=== PATIENT | female | born 1940 | race Caucasian/White ===

== ENCOUNTER 2018-05-03 09:12 | Inpatient (IN) | payer OTHER ==
[~2018-05-03] VITALS: Ht 165.1 cm; Wt 83.4 kg
[2018-05-03 09:13] VITALS: BP 113/55
[2018-05-03] MEDS ORDERED: MAPAP325 MG PO (09:19)
[2018-05-03] MEDS ORDERED: COMBIGAN EYE DR10 ML OPHTHALMIC (09:21)
[2018-05-03] MEDS ORDERED: ARICEPT 5 MG TAB5 MG PO (09:22)
[2018-05-03] MEDS ORDERED: CLARITIN10 MG PO (09:22)
[2018-05-03] MEDS ORDERED: LEVOXYL25 MCG PO (09:22)
[2018-05-03] MEDS ORDERED: LUMIGAN2.5 M1 OPHTHALMIC (09:23)
[2018-05-03] MEDS ORDERED: LYRICA 50 MG50 MG PO (09:24)
[2018-05-03] MEDS ORDERED: NAMENDA 10 MG T10 MG PO (09:25)
[2018-05-03] MEDS ORDERED: REFRESH LIQUIGE15 ML OPHTHALMIC (09:26)
[2018-05-03] MEDS ORDERED: REQUIP 0.25 M0.25 M1 PO (09:26)
[2018-05-03] MEDS ORDERED: SOOTHE EYE OPHTHALMIC (09:27)
[2018-05-03] MEDS ORDERED: VITAMIN D3400 UNIT PO (09:28)
[2018-05-03 09:35] LABS: ABSOLUTE EOSINOPHILS 0.2 thou/uL (0.0-0.7); ABSOLUTE LYMPHOCYTES 1.6 thou/uL (0.8-5.3); ABSOLUTE MONOCYTES 0.5 thou/uL (0.0-1.2); ABSOLUTE NEUTROPHILS 2.4 thou/uL (1.6-8.1); EOSINOPHILS 4.5 %; HEMATOCRIT 41.3 % (37.0-47.0); HEMOGLOBIN 13.9 gm/dL (12.0-15.0); LYMPHOCYTES 33.8 %; MCHC 33.7 g/dL (28.0-37.0); MONOCYTES 9.9 %; MPV 9.3 fl. (7.2-11.1); NUCLEATED RBCS 0 /100WBC; PLATELET COUNT* 172 thou/uL (150-400); POLYS 50.8 %; RBC 4.35 mil/uL (4.20-5.00); RDW-CV 13.9 % (10.5-14.5); WBC 4.7 thou/uL (4.0-11.0)
[2018-05-03 10:03] LABS: ANION GAP 5 mmol/L (7-16); BUN 10 mg/dL (7-18); CALCIUM 8.9 mg/dL (8.5-10.1); CHLORIDE 105 mmol/L (98-107); CO2 30 mmol/L (21-32); GLUCOSE 177 mg/dL (70-99); POTASSIUM 3.8 mmol/L (3.5-5.1); SODIUM 140 mmol/L (136-145)
[2018-05-03 10:07] LABS: ALBUMIN 3.5 g/dL (3.4-5.0); ALKALINE PHOSPHATASE 55 U/L (46-116); LIPASE 161 U/L (73-393); MAGNESIUM 2.1 mg/dL (1.8-2.4); NT-PRO BRAIN NAT PEPTIDE 71 pg/mL (<300); SGOT 33 U/L (15-37); SGPT 40 U/L (30-65); TOTAL BILIRUBIN 0.3 mg/dL (<0.1-1.0); TOTAL PROTEIN 7.2 g/dL (6.4-8.2); TROPONIN-I LEVEL <0.06 ng/mL (<0.06)
[2018-05-03 10:53] VITALS: BP 112/56
[2018-05-03 12:00] VITALS: BP 113/62
--- NOTE | 2018-05-03 14:59 | EKG ---
[place] [address] ELECTROCARDIOGRAM REPORT Name: DARCI POTTER Room: [address] ADM IN .R.#: [id number] Admission: 05/03/18 Attend Phys: Franki Arciniega MD Discharge: Date of : 40 Report #: [id number] THIS REPORT FOR: //name// [facility] ED Test Date: 2018-05-03 Test Time: 09:19:28 Pat Name: DARCI POTTER Department: Room: [facility] Gender: F Cogeneration Technician: FACUNDO : 1940 Requested By: Oneal Alicea Order Number: [id number] MD: Meño Mendes Measurements Intervals [place] Rate: 67 P: [place]: QRS: -32 QRSD: 96 T: 47 QT: 451 QTc: 476 Interpretive Statements sinus rhythm artifact noted Left axis deviation Abnormal R-wave progression, late transition Nonspecific T abnormalities, lateral leads No previous ECG available for comparison Electronically Signed On 05-03-2018 14:59:23 HOME ASSESSMENT NURSE by Meño Mendes [email or web address] <ELECTRONICALLY SIGNED> By: Meño Mendes MD, [facility] 05/03/18 1459 8 8 Meño Mendes MD, [facility] /EPI
[2018-05-03 15:00] VITALS: BP 111/56
--- NOTE | 2018-05-03 18:33 | NUR ---
I ASSUMED CARE OF THE PATIENT AN ADMISSION FROM THE ED AT 1100. SHE IS FROM THE [facility] AND SHARES A ROOM WITH HER . SHE CAME IN WITH EMS AND IS HERE WITH NO CAR. SHE IS AWAKE AND ALERT, BUT UNABLE TO ANSWER QUESTIONS ABOUT WHERE SHE IS. SHE ONLY GETS HER BIRTHDAY RIGHT SOMETIMES. BED IS IN THE LOW LOCKED POSITION AND CALL LIGHT IS IN REACH. HOURLY ROUNDING IS COMPLETED AND PATIENT NEEDS ARE MET. PAIN IS DENIED. DAUGHTER AND GRAND DAUGHTER ARE AT THE BEDSIDE. THERE IS A COT FOR THE FOR OVERNIGHT. D.DIMER WAS DONE AND VQ SCAN AND VENOUS DOPPLER ULTRASOUND. WILL CONTINUE TO MONITOR.
[2018-05-03 20:00] VITALS: BP 116/67
[2018-05-04] VITALS: BP 99/48
[2018-05-04 04:00] VITALS: BP 102/53
[2018-05-04 04:52] LABS: ABSOLUTE BASOPHILS 0.1 thou/uL (0.0-0.2); ABSOLUTE EOSINOPHILS 0.2 thou/uL (0.0-0.7); ABSOLUTE LYMPHOCYTES 2.3 thou/uL (0.8-5.3); ABSOLUTE MONOCYTES 0.6 thou/uL (0.0-1.2); ABSOLUTE NEUTROPHILS 2.4 thou/uL (1.6-8.1); BASOPHILS 1.1 %; EOSINOPHILS 4.2 %; HEMATOCRIT 38.6 % (37.0-47.0); LYMPHOCYTES 40.3 %; MCH 32.1 pg (26.0-34.0); MCHC 33.7 g/dL (28.0-37.0); MCV 95.2 fL (80.0-100.0); MONOCYTES 11.2 %; MPV 9.9 fl. (7.2-11.1); NUCLEATED RBCS 0 /100WBC; PLATELET COUNT* 159 thou/uL (150-400); POLYS 43.2 %; RBC 4.05 mil/uL (4.20-5.00); RDW-CV 13.5 % (10.5-14.5); WBC 5.6 thou/uL (4.0-11.0)
[2018-05-04 05:05] LABS: ANION GAP 6 mmol/L (7-16); BUN 11 mg/dL (7-18); CALCIUM 9.2 mg/dL (8.5-10.1); CHLORIDE 106 mmol/L (98-107); CHOLESTEROL 271 mg/dL (<200); CO2 29 mmol/L (21-32); GLUCOSE 93 mg/dL (70-99); HDL CHOLESTEROL 31 mg/dL (>40); LDL CHOLESTEROL 174 mg/dL (<100); POTASSIUM 3.5 mmol/L (3.5-5.1); SODIUM 141 mmol/L (136-145); TC:HDL 8.7 Ratio (Not establshd); TRIGLYCERIDE 333 mg/dL (<150); VLDL 67 mg/dL (<40)
[2018-05-04 05:09] LABS: SERUM ASSESSMENT CLEAR
--- NOTE | 2018-05-04 07:08 | NUR ---
VITALS WNL. SEE MAR. SEE CHARTING. FALL PRECAUTIONS IN PLACE. HOURLY ROUNDING FOR SAFETY.
[2018-05-04 08:00] VITALS: BP 131/64
--- NOTE | 2018-05-04 10:18 | NUR ---
ASSUMED PT CARE AT 0730, FULL ASSESMENT DONE CHARTED.PT A/O X2-3, IS FORGETFUL, TAKES EXTRA TIME TO ANSWER QUESTIONS. PT WANTS TO GO HOME TODAY, IS AT BEDSIDE. PTS VSS, SB ON THE MONITOR. EATING BREAKFAST, STATES HER DAUGHTER WILL BE HER RIDE HOME. WILL CONTINUE TO MONITOR.
[2018-05-04 11:26] VITALS: BP 131/64
--- NOTE | 2018-05-04 12:06 | NUR ---
HOME DELIVERY DRIVER SPOKE TO THE PATIENT AND HER SPOUSE TO DISCUSS HER DISCHARGE TODAY BACK TO THE [facility]. PATIENT AND SPOUSE IN AGREEMENT. PATIENT'S SPOUSE INFORMS THAT THEIR GRANDDAUGHTER WILL PROVIDE TRANSPORT BACK TO THE [facility], BUT IT WILL TAKE HER 1 HOUR TO GET HERE. D/C FLAME HARDENING MACHINE OPERATOR INFORMED THE RN IN-CHARGE OF THE PATIENT OF THIS INFO AND SHE IS IN AGREEMENT. D/C FLAME HARDENING MACHINE OPERATOR ALSO CONTACTED THE [facility] TO INFORM OF THE PATIENT'S D/C AND FAXED THE PATIENT'S D/C ORDERS. CM WILL REMAIN AVAILABLE TO ASSIST AND FOLLOW NEEDED.
--- NOTE | 2018-05-04 12:23 | EKG ---
[place] [address] ELECTROCARDIOGRAM REPORT Name: DARCI POTTER Room: [address] ADM IN M.R.#: [id number] Admission: 05/03/18 Attend Phys: Franki Arciniega MD Discharge: Date of : 40 Report #: [id number] THIS REPORT FOR: //name// [facility] Test Date: 2018-05-04 Test Time: 08:40:15 Pat Name: DARCI POTTER Department: Room: [address] Gender: F Vocational Training Teacher: : 1940 Requested By: Meño Mendes Order Number: [id number] MD: Meño Mendes Measurements Intervals [place] Rate: 56 P: 29 [place]: 135 QRS: -27 QRSD: 105 T: 49 QT: 474 QTc: 458 Interpretive Statements Sinus rhythm Borderline left axis deviation Borderline low voltage, extremity leads Compared to ECG 05/03/2018 09:19:28 artifact no longer seen Electronically Signed On 05-04-2018 12:23:38 MANAGER RELATIONSHIP by Meño Mendes [email or web address] <ELECTRONICALLY SIGNED> By: Meño Mendes MD, [facility] 05/04/18 1223 0840 0840 Meño Mendes MD, [facility] /EPI
--- NOTE | 2018-05-04 13:33 | CON ---
[address] [address] CONSULTATION Name: DARCI POTTER Room: [address] IN M.R.#: [id number] Admission: 05/03/18 Attend Phys: Franki Arciniega MD Discharge: 05/04/18 Date of : 40 Report #: [id number] THIS REPORT FOR: //name// CC: [facility] DATE OF SERVICE: 05/03/2018 HISTORY OF PRESENT ILLNESS: The patient is a 77-year-old demented white female who I was asked to see in the hospital today after she complained of chest pain. The history is mainly obtained from some records from assisted living as well as the patient's granddaughter who was present. The patient has no previous history of heart disease. She lives in assisted living here in [place] because of a history of memory loss and difficulty caring for herself. She does use a walker. She has no previous history of heart disease. Starting yesterday, she complained of sharp pain in her chest. It is not related to trauma, swallowing, bending over. She denied any rash. She described a sharp pain. There is no radiation to her arm or jaw. She does have shortness of breath. She has been coughing. The [facility] finally called the ambulance today, and she was brought here to [place] for further evaluation and treatment. PAST MEDICAL HISTORY: She has had previous eye surgery for glaucoma. She has had 2 back surgeries. She has chronic back pain. MEDICATIONS: Her only medication includes Lumigan eyedrops. ALLERGIES: SHE HAS AN ALLERGY TO PENICILLIN. FAMILY HISTORY: Mother had heart attack. SOCIAL HISTORY: She is . Her also lives in an assisted living. No smoking or alcohol abuse. REVIEW OF SYSTEMS: She has had no history of stroke or asthma. She has had a peptic ulcer in the past. No liver disease, no kidney disease, no cancer. No chronic skin condition. She has chronic back pain and sciatica. PHYSICAL EXAMINATION: GENERAL: Elderly, frail appearing female, lying in bed. She appeared in no distress. VITAL SIGNS: Blood pressure 110/60, pulse 60. She is afebrile. HEENT: She was anicteric, conjunctiva pink. Mucous membranes moist. NECK: Veins nondistended. No carotid bruits. Neck supple. CHEST: Clear to auscultation. CARDIOVASCULAR: Regular rate and rhythm. [place] [address] CONSULTATION Name: DARCI POTTER Room: [address]#: [id number] Admission: 05/03/18 Attend Phys: Franki Arciniega MD Discharge: 05/04/18 Date of : 40 Report #: [id number] ABDOMEN: Soft. EXTREMITIES: Had no edema. Dorsalis pedis pulse 2+ bilaterally. SKIN: Warm, dry. NEUROLOGIC: Nonfocal. LYMPH: No adenopathy. MUSCULOSKELETAL: No joint effusion. LABORATORY DATA: ECG done in the Emergency Room this morning showed a sinus rhythm. There is a significant amount of artifact, but no significant ST or T-wave change. X-rays done in the Emergency Room today, she had a portable chest x-ray that showed normal heart size, clear lung king. She actually had lab work done in the Emergency Room, sodium 140, creatinine 1.0, glucose 177. Troponin was 0.06 on 2 sets. White blood cell count 4.7, hemoglobin 13.9. IMPRESSION AND RECOMMENDATIONS: 1. Chest pain. Reason unclear. Suspect musculoskeletal. Symptoms does not suggest GI. No evidence of acute coronary syndrome. Recommend no further cardiac workup. 2. Glaucoma. 3. Chronic back pain. <ELECTRONICALLY SIGNED> By: Meño Mendes MD, [facility] 05/04/18 1333 1433 1559Davibruno Mendes MD, FACC /nt
== END 2018-05-04 12:32 | disposition home or self-care (01) | DRG 313 ==
LOC: M.ERS 09:12 → M.2W 10:19 → M.TBA-ER 10:19 → M.2W 11:06
PROVIDERS: Emergency Medicine Emergency Medical Services; ADMIT Internal Medicine
DX: R07.89 Other chest pain (principal); F03.90 Unspecified dementia, unspecified severity, without behavioral disturbance, psychotic disturbance, mood disturbance, and anxiety; G89.29 Other chronic pain; H40.9 Unspecified glaucoma; M54.9 Dorsalgia, unspecified; Z82.49 Family history of ischemic heart disease and other diseases of the circulatory system; Z88.1 Allergy status to other antibiotic agents; Z88.0 Allergy status to penicillin; Z79.899 Other long term (current) drug therapy

== ENCOUNTER 2020-03-07 09:43 | Emergency (ER) | payer OTHER ==
[~2020-03-07] VITALS: Ht 157.5 cm; Wt 77.6 kg
[~2020-03-07 09:43] MED LIST: ARICEPT 5 MG TAB5 MG PO; CLARITIN10 MG PO; COMBIGAN EYE DR10 ML OPHTHALMIC; LEVOXYL25 MCG PO; LUMIGAN2.5 M1 OPHTHALMIC; LYRICA 50 MG50 MG PO; MAPAP325 MG PO; NAMENDA 10 MG T10 MG PO; REFRESH LIQUIGE15 ML OPHTHALMIC; REQUIP 0.25 M0.25 M1 PO; SOOTHE EYE OPHTHALMIC; VITAMIN D3400 UNIT PO
[2020-03-07] MEDS ORDERED: XANAX 0.25 MG0.25 MG PO (09:59)
[2020-03-07] MEDS ORDERED: NORCO 10-325 T1 EACH PO (10:01)
[2020-03-07] MEDS ORDERED: SENNA PLUS TAB1 EACH PO (10:02)
[2020-03-07] MEDS ORDERED: MIRALAX119 GM PO (10:02)
[2020-03-07] MEDS ORDERED: ZOLOFT 50 MG TA50 M1 PO (10:02)
[2020-03-07 10:44] LABS: ABSOLUTE EOSINOPHILS 0.2 thou/uL (0.0-0.7); ABSOLUTE LYMPHOCYTES 1.8 thou/uL (0.8-5.3); ABSOLUTE MONOCYTES 0.7 thou/uL (0.0-1.2); ABSOLUTE NEUTROPHILS 3.1 thou/uL (1.6-8.1); BASOPHILS 0.6 %; HEMOGLOBIN 13.7 gm/dL (12.0-15.0); LYMPHOCYTES 30.4 %; MCH 31.1 pg (26.0-34.0); MCHC 33.4 g/dL (28.0-37.0); MCV 93.2 fL (80.0-100.0); MONOCYTES 12.4 %; MPV 9.5 fl. (7.2-11.1); NUCLEATED RBCS 0 /100WBC; PLATELET COUNT* 114 thou/uL (150-400); POLYS 53.6 %; RBC 4.39 mil/uL (4.20-5.00); RDW-CV 13.5 % (10.5-14.5); WBC 5.9 thou/uL (4.0-11.0)
[2020-03-07 10:52] LABS: CALCIUM 8.5 mg/dL (8.5-10.1); POTASSIUM 4.1 mmol/L (3.5-5.1)
[2020-03-07 10:56] LABS: ALBUMIN 3.4 g/dL (3.4-5.0); TOTAL BILIRUBIN 0.3 mg/dL (<0.1-1.0)
[2020-03-07 12:35] VITALS: BP 124/51
--- NOTE | 2020-03-07 18:10 | EKG ---
[place] [address] ELECTROCARDIOGRAM REPORT Name: DARCI POTTER Room: [facility]#: [id number] Admission: 03/07/20 Attend Phys: Discharge: 03/07/20 Date of : 40 Date of Service: 03/07/20 [facility] Report #: [id number] THIS REPORT FOR: //name// [facility] ED Test Date: 2020-03-07 Test Time: 10:38:40 Pat Name: DARCI POTTER Department: Room: Gender: Auto Body Shop Manager: : 1940 Requested By: Oneal Alicea Order Number: [id number] MD: Stefan Gardner Measurements Intervals [place] Rate: 52 P: 47 FL: 148 QRS: -39 QRSD: 101 T: 61 QT: 472 QTc: 439 Interpretive Statements Sinus rhythm Left axis deviation Low voltage, precordial leads Abnormal R-wave progression, late transition Baseline wander in lead(s) V3 Compared to ECG 05/04/2018 08:40:15 No significant changes Electronically Signed On 03-07-2020 18:10:07 REAL ESTATE INVESTOR by Stefan Gardner [email or web address] <ELECTRONICALLY SIGNED> By: Stefan Gardner MD, FACC 03/07/20 1810 1038 1038 Stefan Gardner MD, FAC /EPI
== END 2020-03-07 12:35 ==
LOC: M.ERS 09:43
PROVIDERS: Emergency Medicine Emergency Medical Services
DX: M54.5 Low back pain (principal); F03.90 Unspecified dementia, unspecified severity, without behavioral disturbance, psychotic disturbance, mood disturbance, and anxiety; Z88.0 Allergy status to penicillin; Z88.1 Allergy status to other antibiotic agents; W18.39XA Other fall on same level, initial encounter; Y93.89 Activity, other specified; Y92.89 Other specified places as the place of occurrence of the external cause; Y99.8 Other external cause status

== ENCOUNTER 2020-05-15 09:12 | Emergency (ER) | payer OTHER ==
[~2020-05-15] VITALS: Ht 167.6 cm; Wt 73.2 kg
[~2020-05-15 09:12] MED LIST changes: +MIRALAX119 GM PO; +NORCO 10-325 T1 EACH PO; +SENNA PLUS TAB1 EACH PO; +XANAX 0.25 MG0.25 MG PO; +ZOLOFT 50 MG TA50 M1 PO
[2020-05-15] MEDS ORDERED: VITAMIN C500 M2 PO (09:23)
[2020-05-15] MEDS ORDERED: VOLTAREN GEL 1100 G1 TOP (09:23)
[2020-05-15] MEDS ORDERED: LORAZEPAM 0.50.5 MG PO (09:24)
[2020-05-15] MEDS ORDERED: LATANOPROST 0.2.5 ML OPHTHALMIC (09:24)
[2020-05-15 09:55] LABS: ABSOLUTE BASOPHILS 0.1 thou/uL (0.0-0.2); ABSOLUTE EOSINOPHILS 0.2 thou/uL (0.0-0.7); ABSOLUTE LYMPHOCYTES 0.6 thou/uL (0.8-5.3); ABSOLUTE MONOCYTES 0.6 thou/uL (0.0-1.2); BASOPHILS 0.8 %; HEMATOCRIT 41.7 % (37.0-47.0); HEMOGLOBIN 13.9 gm/dL (12.0-15.0); LYMPHOCYTES 9.5 %; MCH 30.5 pg (26.0-34.0); MCHC 33.3 g/dL (28.0-37.0); MCV 91.8 fL (80.0-100.0); MONOCYTES 9.4 %; MPV 9.6 fl. (7.2-11.1); NUCLEATED RBCS 0 /100WBC; PLATELET COUNT* 83 thou/uL (150-400); POLYS 77.3 %; RBC 4.54 mil/uL (4.20-5.00); RDW-CV 13.9 % (10.5-14.5); WBC 6.5 thou/uL (4.0-11.0)
[2020-05-15 10:07] LABS: CALCIUM 8.4 mg/dL (8.5-10.1); CREATININE 0.9 mg/dL (0.6-1.3); POTASSIUM 3.9 mmol/L (3.5-5.1)
[2020-05-15 10:10] LABS: ALBUMIN 3.4 g/dL (3.4-5.0); TOTAL BILIRUBIN 0.5 mg/dL (<0.1-1.0); TOTAL PROTEIN 6.7 g/dL (6.4-8.2)
--- NOTE | 2020-05-15 11:36 | EKG ---
[place] [address] ELECTROCARDIOGRAM REPORT Name: DARCI POTTER Room: [facility]#: [id number] Admission: 05/15/20 Attend Phys: Discharge: Date of : 40 Date of Service: 05/15/20921 Report #: [id number] THIS REPORT FOR: //name// [facility] ED Test Date: 2020-05-15 Test Time: 09:22:10 Pat Name: DARCI POTTER Department: Room: Gender: F Head Of Commission Department: : 1940 Requested By: Oneal Alicea Order Number: [id number] MD: Raphael Comer Measurements Intervals [place] Rate: 66 P: 18 [place]: 136 QRS: -43 QRSD: 104 T: 55 QT: 407 QTc: 427 Interpretive Statements Sinus rhythm Left anterior fascicular block Minimal ST elevation, anterior leads Compared to ECG 03/07/2020 10:38:40 Left anterior fascicular block now present ST (T wave) deviation now present Electronically Signed On 05-15-2020 11:36:44 ABSORPTION AND ADSORPTION ENGINEER by Raphael Comer [email or web address] <ELECTRONICALLY SIGNED> By: Raphael Comer MD, [facility] 05/15/20 1136 1 1 Raphael Comer MD, [facility] /EPI
[2020-05-15] MEDS ORDERED: FLEXERIL PO (11:42)
[2020-05-15 12:34] VITALS: BP 129/60
== END 2020-05-15 12:37 ==
LOC: M.ERS 09:12
PROVIDERS: Emergency Medicine Emergency Medical Services
DX: S00.03XA Contusion of scalp, initial encounter (principal); Z20.822 Contact with and (suspected) exposure to COVID-19; M25.562 Pain in left knee; M25.552 Pain in left hip; Z88.0 Allergy status to penicillin; Z88.1 Allergy status to other antibiotic agents; Z88.6 Allergy status to analgesic agent; Z79.899 Other long term (current) drug therapy; W18.30XA Fall on same level, unspecified, initial encounter; Y93.89 Activity, other specified; Y92.128 Other place in nursing home as the place of occurrence of the external cause; Y99.9 Unspecified external cause status

== ENCOUNTER 2020-05-22 19:18 | Emergency (ER) | payer OTHER ==
[~2020-05-22] VITALS: Ht 167.6 cm; Wt 75.8 kg
[~2020-05-22 19:18] MED LIST changes: +FLEXERIL PO; +LATANOPROST 0.2.5 ML OPHTHALMIC; +LORAZEPAM 0.50.5 MG PO; +VITAMIN C500 M2 PO; +VOLTAREN GEL 1100 G1 TOP
[2020-05-22 20:06] LABS: CALCIUM 8.8 mg/dL (8.5-10.1); CREATININE 0.9 mg/dL (0.6-1.3); POTASSIUM 3.2 mmol/L (3.5-5.1)
[2020-05-22 20:09] LABS: PROTIME 10.8 Seconds (9.20-11.50)
[2020-05-22 20:17] LABS: ALBUMIN 3.2 g/dL (3.4-5.0); TOTAL BILIRUBIN 0.2 mg/dL (<0.1-1.0); TOTAL PROTEIN 6.5 g/dL (6.4-8.2)
[2020-05-22 20:39] LABS: ATYPICAL LYMPHS 14 %; PLATELET ESTIMATE ADEQUATE
[2020-05-22 21:06] LABS: URINE BILIRUBIN NEGATIVE (Negative); URINE BLOOD NEGATIVE (Negative); URINE COLOR YELLOW; URINE GLUCOSE-RANDOM NEGATIVE (Negative); URINE KETONES NEGATIVE (Negative); URINE NITRITE-REFLEX NEGATIVE (Negative); URINE PROTEIN NEGATIVE (Negative); URINE SPECIFIC GRAVITY <= 1.005 (1.005-1.030); URINE UROBILINOGEN 0.2 E.U./dl (0.2-1.0)
[2020-05-22 21:08] LABS: URINE CLARITY HAZY; URINE LEUKOCYTES-REFLEX 2+ (Negative)
[2020-05-22 21:09] LABS: BACTERIA-REFLEX None Seen /HPF (None Seen); CASTS None Seen /LPF (None Seen); CRYSTALS None Seen /LPF (None Seen); SQUAMOUS 4-10 Moderate /LPF (0-3); URINE RBC None Seen /HPF (0-2); URINE WBC-REFLEX 6-15 Few /HPF (0-5)
[2020-05-22 21:24] LABS: ABSOLUTE EOSINOPHILS 0.1 thou/uL (0.0-0.7); ABSOLUTE LYMPHOCYTES 2.2 thou/uL (0.8-5.3); ABSOLUTE MONOCYTES 0.3 thou/uL (0.0-1.2); ABSOLUTE NEUTROPHILS 2.3 thou/uL (1.6-8.1); MCH 31.5 pg (26.0-34.0); MCHC 34.3 g/dL (28.0-37.0); RBC 4.13 mil/uL (4.20-5.00); RDW-CV 13.7 % (10.5-14.5); WBC 4.9 thou/uL (4.0-11.0)
[2020-05-22 21:25] LABS: MPV 9.6 fl. (7.2-11.1); PLATELET COUNT* 130 thou/uL (150-400)
[2020-05-22 21:40] VITALS: BP 128/60
--- NOTE | 2020-05-23 09:59 | EKG ---
[place] [address] ELECTROCARDIOGRAM REPORT Name: DARCI POTTER Room: [facility]#: [id number] Admission: 05/22/20 Attend Phys: Discharge: 05/22/20 Date of : 40 Date of Service: 05/22/201924 Report #: [id number] THIS REPORT FOR: //name// [facility] ED Test Date: 2020-05-22 Test Time: 19:25:11 Pat Name: DARCI POTTER Department: Room: Gender: Direct Marketing Representative: [place] : 1940 Requested By: Jennifer Stuart Order Number: [id number] MD: Meño Mendes Measurements Intervals [place] Rate: 61 P: 28 MS: 142 QRS: -38 QRSD: 102 T: 49 QT: 462 QTc: 466 Interpretive Statements Sinus rhythm Left axis deviation Abnormal R-wave progression, late transition Baseline wander in lead(s) V2 Compared to ECG 05/15/2020 09:22:10 no change Electronically Signed On 05-23-2020 9:59:09 OUTDOOR ADVENTURE INSTRUCTOR by Meño Mendes [email or web address] <ELECTRONICALLY SIGNED> By: Meño Mendes MD, [facility] 05/23/20 0959 24 24 Meño Mendes MD, [facility] /EPI
== END 2020-05-22 21:40 | disposition home or self-care (01) ==
LOC: M.ERS 19:18
PROVIDERS: Emergency Medicine
DX: M54.2 Cervicalgia (principal); M54.6 Pain in thoracic spine; R60.0 Localized edema; F03.90 Unspecified dementia, unspecified severity, without behavioral disturbance, psychotic disturbance, mood disturbance, and anxiety; Z79.899 Other long term (current) drug therapy; Z88.8 Allergy status to other drugs, medicaments and biological substances; Z88.0 Allergy status to penicillin; Z88.1 Allergy status to other antibiotic agents; W18.09XA Striking against other object with subsequent fall, initial encounter; Y93.89 Activity, other specified; Y92.89 Other specified places as the place of occurrence of the external cause; Y99.8 Other external cause status

== ENCOUNTER 2020-07-26 03:52 | Observation (INO) | payer OTHER ==
[~2020-07-26] VITALS: Ht 170.2 cm; Wt 69.9 kg
[2020-07-26] VITALS (7 sets, daily range): BP systolic 100–155; BP diastolic 48–85
[~2020-07-26 03:52] MED LIST changes: -ZOLOFT 50 MG TA50 M1 PO; +ZOLOFT 50 MG TA50 MG PO
[2020-07-26 04:54] LABS: ABSOLUTE EOSINOPHILS 0.3 thou/uL (0.0-0.7); ABSOLUTE LYMPHOCYTES 2.1 thou/uL (0.8-5.3); ABSOLUTE MONOCYTES 0.5 thou/uL (0.0-1.2); ABSOLUTE NEUTROPHILS 1.4 thou/uL (1.6-8.1); BASOPHILS 0.8 %; EOSINOPHILS 6.3 %; HEMATOCRIT 42.2 % (37.0-47.0); HEMOGLOBIN 13.8 gm/dL (12.0-15.0); LYMPHOCYTES 48.3 %; MCH 29.8 pg (26.0-34.0); MCHC 32.6 g/dL (28.0-37.0); MCV 91.4 fL (80.0-100.0); MONOCYTES 11.6 %; MPV 9.8 fl. (7.2-11.1); NUCLEATED RBCS 0 /100WBC; PLATELET COUNT* 122 thou/uL (150-400); RBC 4.62 mil/uL (4.20-5.00); RDW-CV 14.4 % (10.5-14.5); WBC 4.3 thou/uL (4.0-11.0)
[2020-07-26 04:58] LABS: CALCIUM 9.1 mg/dL (8.5-10.1); CREATININE 0.8 mg/dL (0.6-1.3); POTASSIUM 3.6 mmol/L (3.5-5.1)
[2020-07-26 05:06] LABS: PROTIME 11.1 Seconds (9.20-11.50)
[2020-07-26 05:09] LABS: ALBUMIN 3.8 g/dL (3.4-5.0); MAGNESIUM 2.2 mg/dL (1.8-2.4); TOTAL BILIRUBIN 0.4 mg/dL (<0.1-1.0); TOTAL PROTEIN 7.4 g/dL (6.4-8.2)
[2020-07-26 07:17] LABS: URINE BILIRUBIN NEGATIVE (Negative); URINE BLOOD NEGATIVE (Negative); URINE CLARITY CLEAR; URINE COLOR YELLOW; URINE GLUCOSE-RANDOM NEGATIVE (Negative); URINE KETONES NEGATIVE (Negative); URINE NITRITE-REFLEX NEGATIVE (Negative); URINE PROTEIN NEGATIVE (Negative); URINE UROBILINOGEN 0.2 E.U./dl (0.2-1.0)
[2020-07-26 07:31] LABS: BACTERIA-REFLEX 1-9 Few /HPF (None Seen); CASTS None Seen /LPF (None Seen); CRYSTALS None Seen /LPF (None Seen); SQUAMOUS 0-3 Few /LPF (0-3); URINE LEUKOCYTES-REFLEX 2+ (Negative); URINE RBC 0-2 Rare /HPF (0-2); URINE WBC-REFLEX 0-5 Rare /HPF (0-5)
--- NOTE | 2020-07-26 11:51 | NUR ---
PT'S [facility]PC INFORMED OF PT'S ADMISSION TO HOSPITAL.
--- NOTE | 2020-07-26 15:57 | NUR ---
PT ADMITTED TO ROOM 220 VIA CART FROM ED AT APPROXIMATELY 1455. PT ORIENTED TO ROOM AND CALL LIGHT. ADMISSION ASSESSMENT AND HISTORY CHARTED. PT A&0I9-[facility] ONLY, ABLE TO TELL NAME BUT NOT DATE OF . HISTORY OF DEMENTIA NOTED. PT TRACING SB ON THE ABSEILING INSTRUCTOR. RATE IN THE 50'S. PT ASYMPTOMATIC. ON RA SAT MID 90'S. PT DENIES ANY PAIN OR SHORTNESS OF BREATH AT THIS TIME. PT SISTER, DPOA AT BEDSIDE AND PT DAUGHTER. PT DPOA TO BRING HOME MEDICATION LIST TO RECONCILE HOME MEDS THIS EVENING. PT UP WITH 1 ASSIST. PER PT SISTER AND DAUGHTER-PT HAS HAD MULTIPLE FALLS WITHIN THE LAST 3 MONTHS. CARDIOLOGY CONSULT IN PLACE. MEDS PER JUN. PT REPOSITIONED EVERY 2 HOURS FOR COMFORT. HOURLY ROUNDING OBSERVED. BED IN LOW POSITION. BED ALARM IN PLACE. FALL PRECAUTIONS IN PLACE. CALL LIGHT WITHIN REACH. WILL CONTINUE PLAN OF CARE.
[2020-07-27 00:08] VITALS: BP 108/57
--- NOTE | 2020-07-27 05:13 | NUR ---
PT SLEPT MOST ON AND OFF THIS SHIFT. ASSESSMENT DOCUMENTED. MEDS GIVEN PER E-JUN. IV PATENT. NO REPORTS OF PAIN PAIN. PT BECAME AGGITATED THIS SHIFT, STATING SHE HAD TO "GO TO TO WHERE SHE CAME FROM". SHE WAS ALSO PULLING ON IV, CLIMBING OUT OF BED AND WOULD NO REDIRECT. NEW IV HAD TO BE STARTED ONE SHE WAS PULLING ON WENT BAD. PRN MEDS GIVEN, PT SLEPT, FALL PRECAUTIONS IN PLACE. WILL CONTINUE WITH PLAN OF CARE.
[2020-07-27 05:35] LABS: ABSOLUTE EOSINOPHILS 0.3 thou/uL (0.0-0.7); ABSOLUTE MONOCYTES 0.6 thou/uL (0.0-1.2); ABSOLUTE NEUTROPHILS 2.4 thou/uL (1.6-8.1); BASOPHILS 0.7 %; EOSINOPHILS 5.5 %; HEMATOCRIT 41.2 % (37.0-47.0); HEMOGLOBIN 13.7 gm/dL (12.0-15.0); LYMPHOCYTES 37.5 %; MCH 30.2 pg (26.0-34.0); MCHC 33.2 g/dL (28.0-37.0); MPV 9.8 fl. (7.2-11.1); NUCLEATED RBCS 0 /100WBC; PLATELET COUNT* 116 thou/uL (150-400); POLYS 45.3 %; RBC 4.52 mil/uL (4.20-5.00); RDW-CV 14.6 % (10.5-14.5); WBC 5.4 thou/uL (4.0-11.0)
[2020-07-27 05:46] LABS: CREATININE 0.8 mg/dL (0.6-1.3); POTASSIUM 3.4 mmol/L (3.5-5.1)
[2020-07-27 07:50] VITALS: BP 118/58
--- NOTE | 2020-07-27 09:00 | NUR ---
ASSUMED CARE OF PT AT 0730. PT SITTING IN BED WAITING FOR BREAKFAST. A&0X1, FORGETFUL AND CONFUSED. IMPULSIVE AT TIMES. BED ALARM IN PLACE. HISTORY OF DEMENTIA NOTED. TRACING SB IN THE 50'S ON THE SENIOR WATER RESOURCES ENGINEER. ON RA SAT UPPER 90'S. DENIES ANY SHORTNESS OF BREATH. PT UP WITH 1 ASSIST TO BATHROOM. PT GOAL FOR TODAY IS DISCHARGE PLANNINH BACK TO [facility]. AM ASSESSMENT CHARTED. MEDICATIONS PER MAR. PT REPOSITIONS SELF. HOURLY ROUNDING OBSERVED. BED IN LOW POSITION. BED ALARM IN PLACE. FALL PRECAUTIONS IN PLACE. CALL LIGHT WITHIN REACH. WILL CONTINUE PLAN OF CARE.
[2020-07-27] MEDS ORDERED: BACTRIM DS TAB1 EAC1 PO (11:55)
[2020-07-27 12:03] VITALS: BP 118/58
--- NOTE | 2020-07-27 12:21 | NUR ---
CARDIOLOGY CLEARED PT FOR DISCHARGE. DISCHARGE ORDERS RECEIVED. DISCHARGE INSTRUCTIONS, CARE NOTES, E SCRIPTS AND FOLLOW UP APPTS GIVEN TO PT. PT SISTER,JOSE AT BEDSIDE DURING DISCHARGE EDUCATION AND COMMUNICATES UNDERSTANDING. IV AND LEAN SENSEI REMOVED. PT DISCHARGED WITH ALL BELONGINGS AND PAPERWORK VIA WHEELCHAIR WITH NURSING STAFF TO SISTER OWN PERSONAL VEHICLE.
--- NOTE | 2020-07-28 10:51 | EKG ---
[place] [address] ELECTROCARDIOGRAM REPORT Name: DARCI POTTER Room: [address]#: [id number] Admission: 07/26/20 Attend Phys: Raven Ruvalcaba, Discharge: 07/27/20 Date of : 40 Date of Service: 07/26/20 0453 Report #: [id number] THIS REPORT FOR: //name// ED Test Date: 2020-07-26 Test Time: 04:53:40 Pat Name: DARCI POTTER Department: Room: [facility] Gender: F Ground Systems Engineer: [place] : 1940 Requested By: Jennifer Stuart Order Number: [id number] MD: Meño Mendes Measurements Intervals [place] Rate: 45 P: 59 ME: 139 QRS: -59 QRSD: 157 T: 39 QT: 560 QTc: 485 Interpretive Statements Sinus bradycardia RBBB and LAFB Baseline wander in lead(s) I,aVL Compared to ECG 05/22/2020 19:25:11 Right bundle-branch block now present Sinus rhythm no longer present Electronically Signed On 07-28-2020 10:51:17 CDT by Meño Mendes [email or web address] <ELECTRONICALLY SIGNED> By: Meño Mendes MD, [facility] 07/28/20 1051 0453 0453 Meño Mendes MD, [facility] /EPI
== END 2020-07-27 12:21 ==
LOC: M.ERS 03:52 → M.TBA-ER 06:30 → M.2W 14:52
PROVIDERS: Emergency Medicine; Internal Medicine; ADMIT Internal Medicine; ATTEND Internal Medicine
DX: R00.1 Bradycardia, unspecified (principal); R29.6 Repeated falls; Z20.822 Contact with and (suspected) exposure to COVID-19; N39.0 Urinary tract infection, site not specified; F03.90 Unspecified dementia, unspecified severity, without behavioral disturbance, psychotic disturbance, mood disturbance, and anxiety; G62.9 Polyneuropathy, unspecified; G89.29 Other chronic pain; M54.9 Dorsalgia, unspecified; E03.9 Hypothyroidism, unspecified; Z88.0 Allergy status to penicillin; Z88.8 Allergy status to other drugs, medicaments and biological substances; Z79.899 Other long term (current) drug therapy